=== PATIENT | female | born 1960 | race Caucasian/White ===

== ENCOUNTER → 2024-05-07 09:54 | Outpatient (REF) | payer BC, SELFPAY | LOC: HWRAD 09:54 | PROVIDERS: ATTENDING PHYSICIAN Internal Medicine Gastroenterology; FAMILY PHYSICIAN Family Medicine | DX: K76.0 Fatty (change of) liver, not elsewhere classified (principal) | CPT/HCPCS: 76700 ==

== ENCOUNTER → 2024-07-02 10:43 | Outpatient (REF) | payer BC, SELFPAY | LOC: WDC 10:43 | PROVIDERS: ATTENDING PHYSICIAN Surgery; FAMILY PHYSICIAN Family Medicine | DX: R92.2 Inconclusive mammogram (principal) | CPT/HCPCS: 76641 ==

== ENCOUNTER → 2024-08-11 12:00 | Outpatient (REF) | payer MEDICARE, BC, SELFPAY | LOC: RAD 12:00 | PROVIDERS: ATTENDING PHYSICIAN Family Medicine | DX: J15.8 Pneumonia due to other specified bacteria (principal) | CPT/HCPCS: 71046 ==

== ENCOUNTER → 2024-11-01 11:47 | Outpatient (REF) | payer MEDICARE, BC, SELFPAY | LOC: RAD 11:47 | PROVIDERS: ATTENDING PHYSICIAN Family Medicine | DX: M54.31 Sciatica, right side (principal) | CPT/HCPCS: 72072; 72110 ==

== ENCOUNTER → 2024-11-01 12:56 | Outpatient (REF) | payer MEDICARE, BC, SELFPAY | LOC: WDC 12:56 | PROVIDERS: ATTENDING PHYSICIAN Surgery; FAMILY PHYSICIAN Family Medicine | DX: Z12.31 Encounter for screening mammogram for malignant neoplasm of breast (principal) | CPT/HCPCS: 77063; 77067 ==

== ENCOUNTER → 2025-01-15 13:47 | Outpatient (REF) | payer MEDICARE, BC, SELFPAY | LOC: WDC 13:47 | PROVIDERS: ATTENDING PHYSICIAN Surgery; FAMILY PHYSICIAN Family Medicine | DX: R92.8 Other abnormal and inconclusive findings on diagnostic imaging of breast (principal) | CPT/HCPCS: 76642 ==

== ENCOUNTER → 2025-02-06 14:38 | Outpatient (REF) | payer MEDICARE, BC, SELFPAY | LOC: MRI 3T 14:38 | PROVIDERS: ATTENDING PHYSICIAN Family Medicine | DX: M54.31 Sciatica, right side (principal); E04.1 Nontoxic single thyroid nodule | CPT/HCPCS: 72148 ==

== ENCOUNTER → 2025-02-07 10:59 | Outpatient (REF) | payer MEDICARE, BC, SELFPAY | LOC: MRI 3T 10:59 | PROVIDERS: ATTENDING PHYSICIAN Family Medicine | DX: M54.31 Sciatica, right side (principal); E04.1 Nontoxic single thyroid nodule | CPT/HCPCS: 72146 ==

== ENCOUNTER → 2025-07-20 13:29 | Outpatient (REF) | payer MEDICARE, BC, SELFPAY | LOC: WDC 13:29 | PROVIDERS: ATTENDING PHYSICIAN Surgery; FAMILY PHYSICIAN Family Medicine | DX: E04.1 Nontoxic single thyroid nodule (principal); R92.8 Other abnormal and inconclusive findings on diagnostic imaging of breast | CPT/HCPCS: 76536; 76642 ==